=== PATIENT | female | born 1940 | race Caucasian/White ===

== ENCOUNTER 2019-08-07 09:57 | Inpatient (IN) | payer MEDICARE ==
[~2019-08-07] VITALS: Ht 152.4 cm; Wt 66.2 kg
[~2019-08-07 09:57] MED LIST: BECL10.62 IH; BUSP5TAB3 PO; FLUN25SP; GABA-529; OMEP20TA20 PO; ONDA4TAB5 PO; VENL37.510 PO
[2019-08-07 10:00] VITALS: BP_SYST 118
[2019-08-07] MEDS ORDERED: KETOROLAC TROMETHAMINE 60 MG/2 ML VIAL IM ONE (10:30)
[2019-08-07 10:38] LABS: BASOPHILS # (AUTO) 0.1 K/uL (0.0-0.2); BASOPHILS % (AUTO) 0.8 % (0.0-2.0); EOSINOPHILS # (AUTO) 0.1 K/uL (0.0-0.4); EOSINOPHILS % (AUTO) 1.3 % (0.0-4.0); HEMATOCRIT 34.3 % (36-48); HEMOGLOBIN 11.7 g/dL (12.0-16.0); LYMPHOCYTES # (AUTO) 2.2 K/uL (1.0-5.5); LYMPHOCYTES % (AUTO) 26.2 % (20.5-51.5); MEAN CORPUSCULAR HEMOGLOBIN 32 pg (27-31); MEAN CORPUSCULAR HGB CONC 34 % (32-36); MEAN CORPUSCULAR VOLUME 92 fL (79.0-98.0); MONOCYTES # (AUTO) 0.5 K/uL (0.0-1.0); MONOCYTES % (AUTO) 5.5 % (1.7-9.3); NEUTROPHILS # (AUTO) 5.5 K/uL (1.8-7.7); NEUTROPHILS % (AUTO) 66.2 % (40.0-70.0); PLATELET COUNT (AUTO) 370 K/uL (130-430); RED BLOOD CELL COUNT(AUTO) 3.73 MIL/uL (4.2-6.2); RED CELL DISTRIBUTION WIDTH 14.4 % (9.0-15.0); WHITE BLOOD COUNT (AUTO) 8.3 K/uL (4.8-10.8)
[2019-08-07 10:48] LABS: ANION GAP 8 (5-15); CALCIUM 8.9 mg/dL (8.4-11.0); CHLORIDE 103 mmol/L (98-107); CREATININE 0.82 mg/dL (0.55-1.30); GLUCOSE 110 mg/dL (70-99); SODIUM SERUM 139 mmol/L (136-145); UREA NITROGEN, BLOOD 13 mg/dL (8-21)
[2019-08-07 10:54] LABS: ALANINE AMINOTRANSFERASE 18 U/L (12-78); ALBUMIN 3.6 g/dL (3.4-4.8); ASPARTATE AMINOTRANSFERASE 18 U/L (10-37); LIPASE 83 U/L (73-393); TOTAL BILIRUBIN 0.3 mg/dL (0.0-1.0)
[2019-08-07] MEDS ORDERED: fentaNYL CITRATE/PF 100 MCG/2 ML AMP IVP ONE (14:15)
[2019-08-07] MEDS ORDERED: HYDROcodone/ACETAMIN 5-325 MG TAB (NORCO/ VICODIN) PO PRN (14:15)
[2019-08-07] MEDS ORDERED: ACETAMINOPHEN 325 MG TABLET PO PRN (14:15)
[2019-08-07 14:19] LABS: PROTHROMBIN TIME 9.6 SECS (9.5-12.5)
[2019-08-07 14:33] LABS: PHOSPHORUS 4.2 mg/dL (2.7-4.5)
[2019-08-07 14:41] LABS: BILIRUBIN,URINE NEGATIVE (NEGATIVE); BLOOD, URINE 1+ (NEGATIVE); CLARITY/URINE SL CLOUDY (CLEAR); COLOR,URINE YELLOW (YELLOW); GLUCOSE,URINE NEGATIVE (NEGATIVE); KETONES,URINE NEGATIVE (NEGATIVE); LEUKOCYTE ESTERASE ,URINE 3+ (NEGATIVE); NITRITE, URINE POSITIVE (NEGATIVE); PROTEIN URINE NEGATIVE (NEGATIVE); UROBILINOGEN,URINE 0.2 (0.2-1.0)
[2019-08-07 15:27] LABS: BACTERIA,URINE MODERATE /HPF (None Seen); WBC,URINE 50-80 /HPF (0-3)
[2019-08-07] MEDS ORDERED: LEVO25TA7 PO (16:11)
[2019-08-07] MEDS ORDERED: MORPHINE 4 MG/ML INJ. SYRINGE IVP ONE (16:30)
[2019-08-07 18:43] VITALS: BP_SYST 155
[2019-08-07 19:03] VITALS: BP_SYST 116
[2019-08-07 20:00] VITALS: BP_SYST 127
[2019-08-07] MEDS ORDERED: KETOROLAC TROMETHAMINE 30 MG VIAL IVP PRN (23:30)
[2019-08-07] MEDS: D5/0.45 NS 1,000 ML IV SCH (23:47)
[2019-08-07] MEDS: MORPHINE 2 MG/ML INJ. SYRINGE IVP PRN (23:48)
[2019-08-07] MEDS: ONDANSETRON HCL 4 MG/2 ML VIAL IVP PRN (23:56)
[2019-08-08] VITALS: BP_SYST 109
[2019-08-08] MEDS: MORPHINE 2 MG/ML INJ. SYRINGE IVP PRN ×3 (05:00→21:52)
[2019-08-08] MEDS: ONDANSETRON HCL 4 MG/2 ML VIAL IVP PRN ×3 (05:00→21:41)
[2019-08-08 07:24] LABS: BASOPHILS # (AUTO) 0.1 K/uL (0.0-0.2); BASOPHILS % (AUTO) 0.7 % (0.0-2.0); EOSINOPHILS # (AUTO) 0.2 K/uL (0.0-0.4); EOSINOPHILS % (AUTO) 2.5 % (0.0-4.0); HEMATOCRIT 33.5 % (36-48); HEMOGLOBIN 11.2 g/dL (12.0-16.0); LYMPHOCYTES % (AUTO) 32.8 % (20.5-51.5); MEAN CORPUSCULAR HEMOGLOBIN 31 pg (27-31); MEAN CORPUSCULAR HGB CONC 33 % (32-36); MEAN CORPUSCULAR VOLUME 93 fL (79.0-98.0); MONOCYTES # (AUTO) 0.6 K/uL (0.0-1.0); MONOCYTES % (AUTO) 7.2 % (1.7-9.3); NEUTROPHILS # (AUTO) 5.1 K/uL (1.8-7.7); NEUTROPHILS % (AUTO) 56.8 % (40.0-70.0); PLATELET COUNT (AUTO) 355 K/uL (130-430); RED BLOOD CELL COUNT(AUTO) 3.62 MIL/uL (4.2-6.2); RED CELL DISTRIBUTION WIDTH 14.6 % (9.0-15.0)
[2019-08-08 07:26] LABS: PROTHROMBIN TIME 9.9 SECS (9.5-12.5)
[2019-08-08 07:29] LABS: ALBUMIN 3.2 g/dL (3.4-4.8); ANION GAP 8 (5-15); CALCIUM 8.1 mg/dL (8.4-11.0); CHLORIDE 101 mmol/L (98-107); CHOLESTEROL 131 mg/dL (<200); CREATININE 0.86 mg/dL (0.55-1.30); GLUCOSE 116 mg/dL (70-99); HDL CHOLESTEROL 44 mg/dL (>55); LDL CHOLESTEROL 77 mg/dL (<100); POTASSIUM 3.8 mmol/L (3.5-5.1); SODIUM SERUM 136 mmol/L (136-145); TOTAL BILIRUBIN 0.4 mg/dL (0.0-1.0); TRIGLYCERIDES 84 mg/dL (30-150); UREA NITROGEN, BLOOD 19 mg/dL (8-21)
[2019-08-08 08:00] VITALS: BP_SYST 120
[2019-08-08 08:35] LABS: ALANINE AMINOTRANSFERASE 44 U/L (12-78); ASPARTATE AMINOTRANSFERASE 42 U/L (10-37)
[2019-08-08] MEDS ORDERED: cefTRIAXone 1 GM in D5W 50 ML IV SCH (09:00)
[2019-08-08] MEDS ORDERED: DIATR MEGLU/DIATRIZ SOD 30 ML SOLUTION PO ONE (09:24)
[2019-08-08] MEDS: LACTOBACILLUS RHAMNOSUS GG 1 CAP CAPSULE PO SCH (09:26)
[2019-08-08] MEDS: D5/0.45 NS 1,000 ML IV SCH ×2 (09:35→21:30)
[2019-08-08] MEDS ORDERED: IOHEXOL 100 ML IV ONE (14:14)
[2019-08-08] MEDS ORDERED: KETOROLAC TROMETHAMINE 30 MG VIAL IVP ONE (17:35)
[2019-08-08] MEDS ORDERED: ROCURONIUM BROMIDE 10 MG/ML (ZEMURON) IV ONE (17:35)
[2019-08-08] MEDS ORDERED: fentaNYL CITRATE/PF 100 MCG/2 ML AMP IVP ONE (17:35)
[2019-08-08] MEDS ORDERED: PROPOFOL 200MG/ 20ML VIAL (DIPRIVAN) IV ONE (17:35)
[2019-08-08] MEDS ORDERED: GLYCOPYRROLATE 0.2 MG/ML VIAL IJ ONE (17:35)
[2019-08-08] MEDS ORDERED: ONDANSETRON HCL 4 MG/2 ML VIAL IVP ONE (17:35)
[2019-08-08] MEDS ORDERED: MIDAZOLAM HCL 5 MG/5 ML VIAL IVP ONE (17:35)
[2019-08-08] MEDS ORDERED: ROPIVACAINE HCL/PF 5 MG/ML 0.5% 30 ML VIAL INJ ONE (17:35)
[2019-08-08] MEDS ORDERED: NEOSTIGMINE METHYLSULFATE 1 MG/ML, 10 ML VIAL IVP ONE (17:35)
[2019-08-08] MEDS ORDERED: SEVOFLURANE 15 MIN GAS INH ONE (17:35)
[2019-08-08] MEDS ORDERED: LR 1,000 ML IV.SOLN IV ONE (17:35)
[2019-08-08] MEDS: BUDESONIDE 0.5 MG/2 ML AMPUL.NEB INH SCH (19:00)
[2019-08-08] MEDS ORDERED: BUPIVACAINE LIPOSOME/PF 266 MG/20 ML VIAL INFIL ONE (19:10)
[2019-08-08] MEDS ORDERED: KETOROLAC TROMETHAMINE 30 MG VIAL IVP PRN (19:45)
[2019-08-08] MEDS ORDERED: fentaNYL CITRATE/PF 100 MCG/2 ML AMP IVP PRN ×2 (19:45)
[2019-08-08] MEDS ORDERED: ONDANSETRON HCL 4 MG/2 ML VIAL IVP PRN (19:45)
[2019-08-08] MEDS: Effexor 37.5 MG TAB PO SCH (21:00)
[2019-08-08] MEDS: GABAPENTIN 100 MG CAPSULE PO SCH (21:00)
[2019-08-08] MEDS ORDERED: KETOROLAC TROMETHAMINE 30 MG VIAL ONE (21:17)
[2019-08-09 01:52] VITALS: BP_SYST 123
[2019-08-09] MEDS: MORPHINE 2 MG/ML INJ. SYRINGE IVP PRN (04:49)
[2019-08-09 04:50] VITALS: BP_SYST 144
[2019-08-09] MEDS ORDERED: LEVOTHYROXINE SODIUM 0.025 MG TABLET PO SCH (07:00)
[2019-08-09] MEDS ORDERED: FLUTICASONE PROPIONATE 50 mCg/SPRAY 16 GM NS SCH (09:00)
[2019-08-09] MEDS ORDERED: busPIRone HCL 5 MG TABLET PO SCH (09:00)
[2019-08-09] MEDS ORDERED: PANTOPRAZOLE SODIUM 40 MG TAB PO SCH (09:00)
[2019-08-09] MEDS ORDERED: FLUNISOLIDE SCH (09:00)
[2019-08-09] MEDS ORDERED: HYDROmorphone 1 MG INJ. 1 MG/ML AMPUL ONE (09:06)
[2019-08-09] MEDS ORDERED: HYDROmorphone 2 MG/ML VIAL ONE (14:38)
[2019-08-10] MEDS: GABAPENTIN 100 MG CAPSULE PO SCH (22:44)
[2019-08-10] MEDS: Effexor 37.5 MG TAB PO SCH (22:44)
[2019-08-10] MEDS: BUDESONIDE 0.5 MG/2 ML AMPUL.NEB INH SCH (23:30)
[2019-08-11 00:22] VITALS: BP_SYST 144
[2019-08-11] MEDS ORDERED: HYDROmorphone 1 MG INJ. 1 MG/ML AMPUL IVP PRN (04:00)
[2019-08-11] MEDS: Effexor 37.5 MG TAB PO SCH ×2 (08:38→21:31)
[2019-08-11] MEDS: LACTOBACILLUS RHAMNOSUS GG 1 CAP CAPSULE PO SCH (08:38)
[2019-08-11] MEDS: GABAPENTIN 100 MG CAPSULE PO SCH ×3 (08:38→21:31)
[2019-08-11 12:30] VITALS: BP_SYST 127
[2019-08-11] MEDS: D5/0.45 NS 1,000 ML IV SCH ×2 (12:53→17:30)
[2019-08-11 16:37] VITALS: BP_SYST 124
[2019-08-11 16:58] LABS: BASOPHILS # (AUTO) 0.1 K/uL (0.0-0.2); BASOPHILS % (AUTO) 0.4 % (0.0-2.0); EOSINOPHILS # (AUTO) 0.1 K/uL (0.0-0.4); EOSINOPHILS % (AUTO) 0.6 % (0.0-4.0); HEMATOCRIT 27.3 % (36-48); HEMOGLOBIN 9.5 g/dL (12.0-16.0); LYMPHOCYTES # (AUTO) 1.6 K/uL (1.0-5.5); MEAN CORPUSCULAR HEMOGLOBIN 32 pg (27-31); MEAN CORPUSCULAR HGB CONC 35 % (32-36); MEAN CORPUSCULAR VOLUME 93 fL (79.0-98.0); MONOCYTES # (AUTO) 1.1 K/uL (0.0-1.0); MONOCYTES % (AUTO) 8.5 % (1.7-9.3); NEUTROPHILS # (AUTO) 9.6 K/uL (1.8-7.7); NEUTROPHILS % (AUTO) 77.5 % (40.0-70.0); PLATELET COUNT (AUTO) 289 K/uL (130-430); RED BLOOD CELL COUNT(AUTO) 2.95 MIL/uL (4.2-6.2); RED CELL DISTRIBUTION WIDTH 13.6 % (9.0-15.0); WHITE BLOOD COUNT (AUTO) 12.4 K/uL (4.8-10.8)
[2019-08-11 17:06] LABS: ANION GAP 9 (5-15); CALCIUM 7.4 mg/dL (8.4-11.0); CHLORIDE 97 mmol/L (98-107); GLUCOSE 130 mg/dL (70-99); SODIUM SERUM 132 mmol/L (136-145); UREA NITROGEN, BLOOD 11 mg/dL (8-21)
[2019-08-11 17:12] LABS: ALANINE AMINOTRANSFERASE 36 U/L (12-78); ALBUMIN 2.4 g/dL (3.4-4.8); ASPARTATE AMINOTRANSFERASE 35 U/L (10-37); TOTAL BILIRUBIN 0.4 mg/dL (0.0-1.0)
[2019-08-11 17:33] LABS: POTASSIUM 2.8 mmol/L (3.5-5.1)
[2019-08-11] MEDS ORDERED: POTASSIUM CHLORIDE 20 MEQ TAB.PRT.SR PO ONE (17:45)
[2019-08-11 19:41] VITALS: BP_SYST 126
[2019-08-11] MEDS: BUDESONIDE 0.5 MG/2 ML AMPUL.NEB INH SCH (19:46)
[2019-08-11 21:20] VITALS: BP_SYST 126
[2019-08-21 11:35] LABS: ALANINE AMINOTRANSFERASE 44 U/L (12-78); ALBUMIN 2.8 g/dL (3.4-4.8); ANION GAP 5 (5-15); ASPARTATE AMINOTRANSFERASE 34 U/L (10-37); CALCIUM 8.1 mg/dL (8.4-11.0); CHLORIDE 103 mmol/L (98-107); CREATININE 0.66 mg/dL (0.55-1.30); GLUCOSE 111 mg/dL (70-99); POTASSIUM 3.7 mmol/L (3.5-5.1); SODIUM SERUM 136 mmol/L (136-145); TOTAL BILIRUBIN 0.4 mg/dL (0.0-1.0); UREA NITROGEN, BLOOD 8 mg/dL (8-21)
[2019-08-21 11:36] LABS: ANION GAP 5 (5-15); CALCIUM 8.1 mg/dL (8.4-11.0); CHLORIDE 103 mmol/L (98-107); CREATININE 0.66 mg/dL (0.55-1.30); GLUCOSE 111 mg/dL (70-99); PHOSPHORUS 2.9 mg/dL (2.7-4.5); POTASSIUM 3.7 mmol/L (3.5-5.1); SODIUM SERUM 136 mmol/L (136-145); UREA NITROGEN, BLOOD 8 mg/dL (8-21)
== END 2019-08-11 21:30 | disposition short-term general hospital (02) | DRG 330 ==
LOC: SED 09:57 → STU 14:02 → SMU 08-11 18:02
PROVIDERS: ADMIT Family Medicine; ATTEND Family Medicine
PROC: 0DB80ZZ Excision of Small Intestine, Open Approach (ICD-10-PCS; principal; 2019-08-08 17:30)
DX: K56.609 Unspecified intestinal obstruction, unspecified as to partial versus complete obstruction (principal); N39.0 Urinary tract infection, site not specified; J44.1 Chronic obstructive pulmonary disease with (acute) exacerbation; E46 Unspecified protein-calorie malnutrition; K21.9 Gastro-esophageal reflux disease without esophagitis; F32.9 Major depressive disorder, single episode, unspecified; E03.9 Hypothyroidism, unspecified; F41.9 Anxiety disorder, unspecified; R74.0 Nonspecific elevation of levels of transaminase and lactic acid dehydrogenase [LDH]; J44.9 Chronic obstructive pulmonary disease, unspecified; Z90.710 Acquired absence of both cervix and uterus; Z90.49 Acquired absence of other specified parts of digestive tract; Z79.899 Other long term (current) drug therapy; Z90.721 Acquired absence of ovaries, unilateral; Z68.28 Body mass index [BMI] 28.0-28.9, adult
CPT/HCPCS: 36415; 71045; 80048; 80053; 80061; 81000-TC; 83036; 83605; 83690-TC; 83735-TC; 83880; 84100-TC; 84439; 84443-TC; 84484; 85025; 85610-TC; 85730-TC; 87086; 87186-TC; 88307; 93005; 94640; 94760; 96372; 96374; 96375; 99285; C9290; G0378; J0696; J1170; J1885; J2250; J2270; J2405; J2704; J2710; J3010; J3490; J7060; J7120; J7626; Q9964; Q9967

== ENCOUNTER 2020-06-16 02:32 | Emergency (ER) | payer MEDICARE ==
[~2020-06-16] VITALS: Ht 152.4 cm; Wt 67.1 kg
[~2020-06-16 02:32] MED LIST changes: +LEVO25TA7 PO; -ONDA4TAB5 PO
[2020-06-16 02:35] VITALS: BP_SYST 107
--- NOTE | 2020-06-16 02:35 | NUR ---
Patient to ER bed 7 to gown for evaluation. Side rails up. Report given to Shira.
--- NOTE | 2020-06-16 02:40 | NUR ---
PT AAO AND AMBULATORY C/O RIGHT SIDED ABDOMINAL PAIN SINCE 10PM TONIGHT THAT WOKE HER FROM SLEEP. PT REPORTS HISTORY OF MULTIPLE BOWEL ISSUES AND PRIOR BOWEL SURGERIES IN THE PAST. PT REPORTS 8/10 PAIN LEVEL CURRENTLY. V/S STABLE.
--- NOTE | 2020-06-16 02:50 | NUR ---
ER Dr. SALOMON at bedside examining patient.
[2020-06-16] MEDS ORDERED: NACL 0.9% 1,000 ML IV ONE (02:58)
[2020-06-16] MEDS ORDERED: MORPHINE 2 MG/ML INJ. SYRINGE IVP ONE (03:00)
[2020-06-16] MEDS ORDERED: DIPHENHYDRAMINE INJ 50 MG/ML VIAL IVP ONE (03:00)
--- NOTE | 2020-06-16 03:10 | NUR ---
IV STARTED LT FA 20G [facility] DRAWN AND SENT
--- NOTE | 2020-06-16 03:22 | NUR ---
PT TO CT SCAN VIA WC
[2020-06-16 03:35] LABS: BASOPHILS # (AUTO) 0.1 K/uL (0.0-0.2); BASOPHILS % (AUTO) 0.7 % (0.0-2.0); EOSINOPHILS # (AUTO) 0.3 K/uL (0.0-0.4); EOSINOPHILS % (AUTO) 3.6 % (0.0-4.0); HEMATOCRIT 35.4 % (36-48); HEMOGLOBIN 12.1 g/dL (12.0-16.0); LYMPHOCYTES # (AUTO) 2.7 K/uL (1.0-5.5); LYMPHOCYTES % (AUTO) 31.5 % (20.5-51.5); MEAN CORPUSCULAR HEMOGLOBIN 31 pg (27-31); MEAN CORPUSCULAR HGB CONC 34 % (32-36); MEAN CORPUSCULAR VOLUME 92 fL (79.0-98.0); MONOCYTES # (AUTO) 0.6 K/uL (0.0-1.0); MONOCYTES % (AUTO) 6.9 % (1.7-9.3); NEUTROPHILS # (AUTO) 4.9 K/uL (1.8-7.7); NEUTROPHILS % (AUTO) 57.3 % (40.0-70.0); PLATELET COUNT (AUTO) 330 K/uL (130-430); RED BLOOD CELL COUNT(AUTO) 3.85 MIL/uL (4.2-6.2); RED CELL DISTRIBUTION WIDTH 14.2 % (9.0-15.0); WHITE BLOOD COUNT (AUTO) 8.5 K/uL (4.8-10.8)
[2020-06-16 03:41] LABS: ANION GAP 6 (5-15); CALCIUM 8.7 mg/dL (8.4-11.0); CHLORIDE 102 mmol/L (98-107); CREATININE 0.87 mg/dL (0.55-1.30); GLUCOSE 121 mg/dL (70-99); POTASSIUM 3.8 mmol/L (3.5-5.1); SODIUM SERUM 135 mmol/L (136-145); UREA NITROGEN, BLOOD 16 mg/dL (8-21)
[2020-06-16 03:45] LABS: INR 0.9 (0.8-1.2); PROTHROMBIN TIME 9.2 SECS (9.5-12.5)
[2020-06-16 03:46] LABS: ALANINE AMINOTRANSFERASE 22 U/L (12-78); ALBUMIN 3.6 g/dL (3.4-4.8); ASPARTATE AMINOTRANSFERASE 21 U/L (10-37); TOTAL BILIRUBIN 0.1 mg/dL (0.0-1.0)
--- NOTE | 2020-06-16 03:50 | NUR ---
pt returned from ct ;to br voided urine specimen and sent to lab To rm 7 and on [place] ;meds given iv ns at 100ml/hr started
[2020-06-16 04:22] LABS: BILIRUBIN,URINE NEGATIVE (NEGATIVE); BLOOD, URINE 2+ (NEGATIVE); CLARITY/URINE CLEAR (CLEAR); COLOR,URINE YELLOW (YELLOW); GLUCOSE,URINE NEGATIVE (NEGATIVE); KETONES,URINE NEGATIVE (NEGATIVE); LEUKOCYTE ESTERASE ,URINE NEGATIVE (NEGATIVE); NITRITE, URINE NEGATIVE (NEGATIVE); PROTEIN URINE NEGATIVE (NEGATIVE); UROBILINOGEN,URINE 0.2 (0.2-1.0)
[2020-06-16] MEDS ORDERED: fentaNYL CITRATE/PF 100 MCG/2 ML AMP IVP ONE (04:30)
--- NOTE | 2020-06-16 04:35 | NUR ---
Dr Brenner to [facility] pt
[2020-06-16 04:40] LABS: BACTERIA,URINE FEW /HPF (None Seen); WBC,URINE 0-3 /HPF (0-3)
--- NOTE | 2020-06-16 04:45 | NUR ---
PT MED FENTENAL 50 MCG IV GIVEN FOR PAIN
--- NOTE | 2020-06-16 06:03 | NUR ---
DR SALOMON TO TALK TO [facility] FOR TRANSFER AND WILL CALL BACK TO WHICH [facility] TO SEND PT [facility] TO TALK TO PT
--- NOTE | 2020-06-16 07:00 | NUR ---
Assumed care of patient, report received from CROW Silva. Pt currently resting in bed, will continue to monitor.
[2020-06-16 07:40] VITALS: BP_SYST 107
--- NOTE | 2020-06-16 07:42 | NUR ---
Patient to be transferred to [facility]. Is being transferred due to higher level of care. Receiving facility has accepting physician and available space. ER physician has signed transfer form. Patient or responsible green party has agreed to transfer and signed form. Patient belongings inventoried and will be sent with patient. Copy of nursing notes, lab reports, EKG, Physicians Orders and X-rays to be sent with patient. Report called to CROW Vaz at receiving facility. Receiving physician is Dr. Garcia. [facility] ambulance service has been called for transfer.
== END 2020-06-16 07:42 | disposition short-term general hospital (02) ==
LOC: SED 02:32
DX: R10.31 Right lower quadrant pain (principal); F41.9 Anxiety disorder, unspecified; K21.9 Gastro-esophageal reflux disease without esophagitis; E03.9 Hypothyroidism, unspecified; Z79.899 Other long term (current) drug therapy
CPT/HCPCS: 36415; 74176; 80053; 81000; 85025; 85610; 85730; 96361; 96374; 96375; 99285; J1200; J2270; J3010; J7030